=== PATIENT | female | born 2000 ===

== ENCOUNTER 2023-04-12 06:16 | Inpatient (IN) | payer OTHER ==
[~2023-04-12] VITALS: Ht 162.6 cm; Wt 90.7 kg
[2023-04-12] MEDS ORDERED: PRENATABS RX T1 EACH PO (06:58)
[2023-04-12 07:29] LABS: INR 0.94; PROTHROMBIN TIME 9.9 SECONDS (9.0-11.5)
[2023-04-12 07:36] LABS: PH,URINE 5.5 (5.0-8.0); URINE APPEARANCE Clear; URINE BILIRRUBIN Negative (NEGATIVE); URINE BLOOD Negative; URINE COLOR Dark Yellow; URINE LEUKOCYTE Small; URINE NITRATE Negative; URINE PROTEIN Trace (NEGATIVE)
[2023-04-12 07:38] LABS: HEMATOCRIT 34.4 % (36.0-45.00); HEMOGLOBIN 11.7 g/dL (12.0-15.00); MEAN CELL VOLUME 75.6 fL (80.00-100.00); MEAN CORPUSCULAR HEMOGLOBIN 25.8 pg (27.00-32.0); MEAN CORPUSCULAR HGB CONC 34.1 g/dl (32.0-36.0); PLATELET COUNT 255 K/uL (150-450); RED BLOOD COUNT 4.55 M/uL (4.00-6.00); RED CELL DISTRIBUTION WIDTH 14.1 % (11.5-14.5)
[2023-04-12 07:39] LABS: URINE BACTERIA 487.6 uL (0.0-1933); URINE EPITHELIAL CELLS 47.1 uL (0.0-38.8); URINE RBC 2.7 uL (0.0-20.8); URINE WBC 38.6 uL (0.0-23.2)
[2023-04-12 07:56] LABS: URINE GLUCOSE 100 MG/DL (NEGATIVE)
[2023-04-12 07:57] LABS: URINE CRYSTALS FEW /HPF; URINE MUCUS MODERATE
[2023-04-12 08:06] LABS: ALBUMIN 2.3 gm/dL (3.4-5.0); BILIRUBIN TOTAL 0.32 mg/dL (0.3-1.2); CALCIUM 8.4 mg/dL (8.5-10.1); CREATININE SERUM 0.62 mg/dL (0.55-1.02); GFR 119.28; GLOBULINA 3.5 G/DL (2.4-3.5); POTASSIUM 3.96 mEq/L (3.5-5.1); T4 FREE 0.9 NG/ML (0.76-1.46); TOTAL PROTEIN 5.8 gm/dL (6.4-8.2); TSH 1.3 uIU/mL (0.358-3.74)
[2023-04-14] MEDS ORDERED: IBU800 MG PO (12:48)
[2023-04-14] MEDS ORDERED: COLACE100 MG PO (12:48)
== END 2023-04-14 13:12 | disposition home or self-care (01) | DRG 807 ==
LOC: LDR 06:16 → OB/GYN 06:16
PROVIDERS: ADMIT Student in an Organized Health Care Education/Training Program; ATTEND Student in an Organized Health Care Education/Training Program
PROC: 10E0XZZ Delivery of Products of Conception, External Approach (ICD-10-PCS; principal; 2023-04-12)
PROC: 0HQ9XZZ Repair Perineum Skin, External Approach (ICD-10-PCS; 2023-04-12)
PROC: 4A1HXCZ Monitoring of Products of Conception, Cardiac Rate, External Approach (ICD-10-PCS; 2023-04-12)
DX: O70.0 First degree perineal laceration during delivery (principal); Z37.0 Single live birth; Z3A.38 38 weeks gestation of pregnancy; Z20.822 Contact with and (suspected) exposure to COVID-19